=== PATIENT | male | born 2000 | race Caucasian/White ===

== ENCOUNTER → 2020-08-12 15:31 | Outpatient (BNVA) | payer SELFPAY | PROVIDERS: Family Provider Nurse Practitioner Family; PCP Family Medicine; Visit Provider Nurse Practitioner | DX: N50.819 Testicular pain, unspecified (principal) | CPT/HCPCS: 81000 ==

== ENCOUNTER → 2021-10-03 09:51 | Outpatient (BNVA) | payer BC, SELFPAY | PROVIDERS: Family Provider Nurse Practitioner Family; Visit Provider Family Medicine | DX: Z76.89 Persons encountering health services in other specified circumstances (principal) | CPT/HCPCS: 80053; 85025 ==

== ENCOUNTER → 2021-12-11 13:45 | Outpatient (BNVA) | payer BC, SELFPAY | PROVIDERS: Family Provider Nurse Practitioner Family; Visit Provider Nurse Practitioner Family | DX: Z20.822 Contact with and (suspected) exposure to COVID-19 (principal) | CPT/HCPCS: 87635 ==

== ENCOUNTER → 2022-01-31 11:14 | Outpatient (BNVA) | payer BC, SELFPAY | PROVIDERS: Family Provider Nurse Practitioner Family; Visit Provider Physician Assistant | DX: M54.9 Dorsalgia, unspecified (principal) | CPT/HCPCS: 72110 ==

== ENCOUNTER → 2022-10-29 10:55 | Outpatient (BNVA) | payer BC, SELFPAY | PROVIDERS: PCP Nurse Practitioner Adult Health; Visit Provider Physician Assistant | DX: M47.812 Spondylosis without myelopathy or radiculopathy, cervical region (principal) | CPT/HCPCS: 72050 ==

== ENCOUNTER 2022-12-27 09:17 | Outpatient (CLI) | payer BC, SELFPAY ==
--- NOTE | 2022-12-27 09:30 | MR_ITS ---
WS: [id number] MRI CERVICAL SPINE NONCONTRAST HISTORY: neck pain COMPARISON: None available. Technique: Multiplanar, multisequence noncontrast imaging of the cervical spine. Normal cervical alignment with no compression fracture or significant disc space narrowing. Signal within the cervical cord is normal. Visualized posterior fossa is unremarkable. Craniocervical junction, C1 and C2 relationship, odontoid process and soft tissues are normal. C2-C3: Normal. C3-C4: Normal. C4-C5: Normal. C5-C6: Very shallow RIGHT paracentral disc protrusion. No stenosis or cord contact. C6-C7: Normal. C7-T1: Normal. Paraspinal soft tissue are normal. MR/MR cervical spin wo con* [id number] IMPRESSION: 1. Very shallow RIGHT paracentral disc protrusion at C5-6. No cord contact or stenosis. 2. Otherwise normal cervical spine MRI.
== END 2022-12-27 09:18 | disposition home or self-care (01) ==
LOC: RAD 09:23
PROVIDERS: PCP Family Medicine; Visit Provider Physician Assistant
DX: M50.222 Other cervical disc displacement at C5-C6 level
CPT/HCPCS: 72141

== ENCOUNTER 2023-02-21 08:07 | Outpatient (CLI) | payer BC, SELFPAY ==
--- NOTE | 2023-02-21 08:21 | NM_ITS ---
WS: [id number] NUCLEAR MEDICINE BONE SCAN Radiopharmaceutical: 26.3 Tc-99m MDP mCi IV Injection site: antecubital Postinjection imaging delay: 1 hr CLINICAL INFORMATION: SPONDYLOLYSIS; PARS DEFECT OF LUMBAR SPINE; BACK PAIN COMPARISON: Radiograph January 31, 2022 FINDINGS: Bone lesions: No abnormal radiotracer activity in the lower lumbar spine at the L5-S1 level. Otherwis e normal bone marrow radiotracer activity. No other suspicious findings. Soft tissue contours: Normal. Kidneys: Normal. Other findings: None. NM/NM bone scan whole body* [id number] IMPRESSION: No abnormal radiotracer activity in the lower lumbar spine at the L5-S1 level.
== END 2023-02-21 08:08 | disposition home or self-care (01) ==
LOC: RAD 08:10
PROVIDERS: PCP Family Medicine; Visit Provider Physician Assistant
DX: M47.816 Spondylosis without myelopathy or radiculopathy, lumbar region (principal)
CPT/HCPCS: 78306; A9561

== ENCOUNTER 2024-01-09 06:00 | Outpatient (CLI) | payer BC, SELFPAY | END 2024-01-09 06:01 | disposition home or self-care (01) | LOC: SPT 01-12 09:36 | PROVIDERS: PCP Family Medicine; Visit Provider Nurse Practitioner | DX: Z46.89 Encounter for fitting and adjustment of other specified devices (principal); M25.561 Pain in right knee | CPT/HCPCS: 97760; L1812 ==

== ENCOUNTER → 2024-01-09 08:56 | Outpatient (BNVA) | payer BC, SELFPAY | PROVIDERS: PCP Family Medicine; Visit Provider Nurse Practitioner | DX: S83.206A Unspecified tear of unspecified meniscus, current injury, right knee, initial encounter; X58.XXXA Exposure to other specified factors, initial encounter; M25.361 Other instability, right knee; M25.59 Pain in other specified joint | CPT/HCPCS: 73560; 73565 ==

== ENCOUNTER 2024-01-14 13:25 | Outpatient (CLI) | payer BC, SELFPAY ==
[2024-01-14 13:44] LABS: Basophils % 0.3 %; Eosinophils # 0.2 10^3/uL (0.0-0.8); Eosinophils % 1.7 %; Hematocrit 42.9 % (37-53); Lymphocytes # 2.1 10^3/uL (0.8-4.8); Lymphocytes % 21.5 %; Mean Corpuscular HGB Conc 33.1 g/dL (30-55); Mean Corpuscular Volume 87.7 fl (82-101); Mean Platelet Volume 10.2 fL (7.4-10.4); Monocytes # 1.1 10^3/uL (0.2-0.9); Monocytes % 11.9 %; Neutrophils # 6.17 10^3/uL (1.8-7.7); Neutrophils % 64.3 %; Nucleated Red Blood Cells % 0 %; Platelet Count 270 10^3/cmm (157-399); Red Blood Count 4.89 10^6/uL (3.85-5.65); Red Cell Distribution Width 12.5 % (12.1-15.1); White Blood Count 9.59 10^3/uL (3.29-11.43)
[2024-01-14 13:50] LABS: Erythrocyte Sedimentation Rate 12 mm/hr (0-10)
[2024-01-14 14:00] LABS: Alanine Aminotransferase 18 U/L (0-41); Albumin Level 4.3 g/dL (3.5-5.2); Alkaline Phosphatase 86 U/L (40-130); Anion Gap 14.2 (5-19); Aspartate Amino Transferase 16 U/L (0-40); Blood Urea Nitrogen 15 mg/dL (6-20); C Reactive Protein 9.2 mg/L (0.0-4.9); Calcium 9.1 mg/dL (8.5-10.5); Carbon Dioxide 24 mmol/L (22-29); Chloride 109 mmol/L (98-107); Globulin 3.3 g/dL (1.3-4.6); Glomerular Filtration Rate 92.6 mL/min (90-130); Glucose 109 mg/dL (65-115); Osmolality Calculated 297 mOsm/kg (285-295); Potassium 4.2 mmol/L (3.5-5.1); Sodium 143 mmol/L (136-145); Total Bilirubin 0.3 mg/dL (0.15-1.2); Total Protein 7.6 g/dL (6.6-8.7)
[2024-01-15 13:00] LABS: Cyclic Citrullinated Peptide <16 UNITS
[2024-01-15 15:45] LABS: Anti-Double Strand DNA AB 2 IU/mL; Jo-1 Antibody <1.0 NEG AI (<1.0 NEG); SS-B/LA IGG <1.0 NEG AI (<1.0 NEG); Scleroderma Ab(Scl-70) Ab <1.0 NEG AI (<1.0 NEG); Ss-A/Ro Igg <1.0 NEG AI (<1.0 NEG)
[2024-04-15 10:12] LABS: SM/RNP Antibodies <1.0 NEG
== END 2024-01-14 13:26 | disposition home or self-care (01) ==
LOC: LAB 13:26
PROVIDERS: PCP Family Medicine; Visit Provider Nurse Practitioner
DX: M06.4 Inflammatory polyarthropathy (principal)
CPT/HCPCS: 36415; 80053; 84550; 85025; 85651; 86140; 86200; 86225; 86235; 86431

== ENCOUNTER → 2025-04-04 13:02 | Outpatient (BNVA) | payer BC, SELFPAY | PROVIDERS: PCP Family Medicine; Visit Provider Nurse Practitioner | DX: S63.622A Sprain of interphalangeal joint of left thumb, initial encounter (principal); S60.012A Contusion of left thumb without damage to nail, initial encounter; W19.XXXA Unspecified fall, initial encounter | CPT/HCPCS: 73130 ==

== ENCOUNTER 2025-11-16 10:22 | Outpatient (CLI) | payer BC, SELFPAY ==
[2025-11-16 10:37] LABS: Viscosity Semen High Viscosity
[2025-11-16 10:53] LABS: Volume Semen 3.0 mL (2-5)
[2025-11-16 11:07] LABS: Side 1 65; Side 2 48
[2025-11-16 11:09] LABS: Sperm Immotility 80 % (50-60); Sperm Progressive Motility 20 % (31-34)
[2025-11-16 11:13] LABS: Sperm Count 56.0000 mill/mL (40-160)
[2025-11-16 11:14] LABS: Red Blood Count Semen 0-4 /hpf; White Blood Count Semen 1 /hpf
[2025-11-16 11:20] LABS: Sperm Vitality-% Live Sperm 24 %
== END 2025-11-16 10:23 | disposition home or self-care (01) ==
PROVIDERS: PCP Family Medicine; Visit Provider Family Medicine
DX: Z31.69 Encounter for other general counseling and advice on procreation (principal)
CPT/HCPCS: 89320